=== PATIENT | male | born 1940 | race Caucasian/White ===

== ENCOUNTER 2019-11-16 09:56 | Inpatient (IN) | payer OTHER ==
[~2019-11-16] VITALS: Ht 180.3 cm; Wt 108.0 kg
[2019-11-16 10:02] VITALS: BP 156/98
[2019-11-16 10:41] LABS: ABSOLUTE NEUTROPHILS 6.3 thou/uL (1.4-8.2); BASOPHILS 0.7 % (0.0-2.0); EOSINOPHILS 2.1 % (0.0-3.0); HEMOGLOBIN 11.8 gm/dL (14.0-18.0); LYMPHOCYTES 13.3 % (24.0-44.0); MCH 31.8 pg (26.0-34.0); MCHC 33.7 g/dL (28.0-37.0); MCV 94.2 fL (80.0-100.0); MONOCYTES 7.7 % (1.0-8.0); PLATELET COUNT 167 thou/uL (150-400); POLYS 76.2 % (36.0-66.0); RBC 3.72 mil/uL (4.50-6.00); RDW 14.5 % (10.5-14.5); WBC 8.3 thou/uL (4.0-11.0)
[2019-11-16 10:58] LABS: ANION GAP 9 mmol/L (7-16); BUN 16 mg/dL (7-18); CALCIUM 8.7 mg/dL (8.5-10.1); CHLORIDE 100 mmol/L (98-107); CO2 26 mmol/L (21-32); CREATININE 1.1 mg/dL (0.7-1.3); GLUCOSE 154 mg/dL (74-106); POTASSIUM 4.2 mmol/L (3.5-5.1); SODIUM 135 mmol/L (136-145); TROPONIN-I <0.06 ng/mL (<0.06)
[2019-11-16] MEDS ORDERED: ELIQUIS5 MG PO (12:39)
[2019-11-16] MEDS ORDERED: RIVASTIGMINE3 MG PO (12:39)
[2019-11-16] MEDS ORDERED: FLOMAX0.4 MG PO (12:40)
[2019-11-16] MEDS ORDERED: GABAPENTIN600 M1 PO (12:40)
[2019-11-16] MEDS ORDERED: OMEPRAZOLE 20 M20 M1 PO (12:40)
[2019-11-16] MEDS ORDERED: FUROSEMIDE 20 M20 MG PO (12:41)
[2019-11-16] MEDS ORDERED: ALPRAZOLAM 0.50.5 MG PO (12:41)
[2019-11-16] MEDS ORDERED: COZAAR 25 MG TA25 M1 PO (12:41)
[2019-11-16] MEDS ORDERED: LEXAPRO 10 MG T10 M1 PO (12:42)
[2019-11-16] MEDS ORDERED: LIPITOR40 MG PO (12:42)
[2019-11-16] MEDS ORDERED: ASA81BEC PO (12:43)
[2019-11-16] MEDS ORDERED: DESYREL150 MG PO (12:43)
[2019-11-16] MEDS ORDERED: SPIRIVA INH (12:45)
[2019-11-16] MEDS ORDERED: DILTIAZEM 24HR360 M1 PO (12:46)
--- NOTE | 2019-11-16 13:08 | EKG ---
[facility] [place] [address] ELECTROCARDIOGRAM REPORT Name: RASHAUN ROMERO Room #: 170-7 ADM IN M.R.#: [id number] Admission: 11/16/19 Attend Phys: Apolinar Khan MD Discharge: Date of : 40 Report #: [id number] THIS REPORT FOR: cc: Edwin Felix MD, Samuel D. 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: : 1940 Requested By: Shan Conner Order Number: [id number] MD: Yefri Garner Measurements Intervals [place] Rate: 144 P: [place]: QRS: 16 QRSD: 87 T: 8 QT: 313 QTc: 485 Interpretive Statements Atrial fibrillation with rapid V-rate Anterior infarct, old Compared to ECG 07/12/2006 08:33:44 Myocardial infarct finding now present T-wave abnormality no longer present Electronically Signed On 11-16-2019 13:08:31 CDT by Yefri Garner [email or web address] <ELECTRONICALLY SIGNED> By: Yefri Garner MD, FACC 11/16/19 1308 1017 1017 Yefri Garner MD, FAC /EPI
[2019-11-16 13:15] VITALS: BP 137/97
--- NOTE | 2019-11-16 13:15 | NUR ---
FIRST ATTEMPT AT REPORT. STATES "GOING TO FIND CHARGE NURSE TO FIND OUT WHO IS GOING TO TAKE THE PT.
[2019-11-16 13:34] VITALS: BP 128/76
[2019-11-16 14:10] VITALS: BP 129/82
[2019-11-16] MEDS ORDERED: RIVASTIGMINE6 MG PO (15:22)
--- NOTE | 2019-11-16 16:29 | NUR ---
PT ADMITTED, ASSESSED, POC REVIEWED, BOTH PT AND VERBALIZED UNDERSTANDING, DR CAT IN TO SEE, PT'S TO BRING "DEMENTIA" MEDICATION TO STAFF FOR PT TO TAKE. WILL SEND TO PHARMACY FOR VERIFICATION WHEN SHE DOES. PT ON 3L NC TO EASE BREATHING, DR ALMANZA CONSULTED TO SEE PT, WILL MONITOR
[2019-11-16 19:48] VITALS: BP 134/98
[2019-11-16 23:41] VITALS: BP 128/68
[2019-11-17] VITALS: BP 105/75
--- NOTE | 2019-11-17 04:38 | NUR ---
Assumed pt care at 1900. Pt is alert and oriented but slightly forget.No sign of distress noted. Fall precaution in place. Pt is sitting at the side of the bed. Denies any pain. Assessment completed and documented. Scheduled meds administered to pt. Pt complains of shortness of breath during the night. Pt is stable. Continue to monitor pt. No further needs at this time.
[2019-11-17 05:00] VITALS: BP 115/78
[2019-11-17 05:34] LABS: CALCIUM 8.3 mg/dL (8.5-10.1); CREATININE 1.7 mg/dL (0.7-1.3); POTASSIUM 4.9 mmol/L (3.5-5.1)
[2019-11-17 06:06] LABS: ABSOLUTE NEUTROPHILS 6.8 thou/uL (1.4-8.2); BASOPHILS 0.3 % (0.0-2.0); EOSINOPHILS 2.2 % (0.0-3.0); HEMATOCRIT 33.3 % (42.0-52.0); HEMOGLOBIN 11.2 gm/dL (14.0-18.0); LYMPHOCYTES 12.7 % (24.0-44.0); MCH 31.7 pg (26.0-34.0); MCHC 33.5 g/dL (28.0-37.0); MCV 94.5 fL (80.0-100.0); PLATELET COUNT 154 thou/uL (150-400); POLYS 73.8 % (36.0-66.0); RBC 3.52 mil/uL (4.50-6.00); RDW 14.3 % (10.5-14.5); WBC 9.2 thou/uL (4.0-11.0)
[2019-11-17 06:21] LABS: URINE BILIRUBIN NEGATIVE (Negative); URINE BLOOD NEGATIVE (Negative); URINE CLARITY CLEAR; URINE COLOR YELLOW; URINE GLUCOSE-RANDOM* NEGATIVE (Negative); URINE KETONES TRACE (Negative); URINE LEUKOCYTES-REFLEX NEGATIVE (Negative); URINE NITRITE-REFLEX NEGATIVE (Negative); URINE PROTEIN (DIPSTICK) 1+ (Negative); URINE SPECIFIC GRAVITY 1.025 (1.005-1.035); URINE UROBILINOGEN 0.2 E.U./dl (0.2-1.0)
[2019-11-17 06:43] LABS: HYALINE CASTS 0-3 Few /LPF (None Seen); MUCUS 4-6 Moderate strn/LPF (None Seen); SQUAMOUS 0-3 Few /LPF (0-3); URINE WBC-REFLEX 0-5 Rare /HPF (0-5)
[2019-11-17 06:44] LABS: BACTERIA-REFLEX None Seen /HPF (None Seen); CRYSTALS None Seen /LPF (None Seen); URINE RBC None Seen /HPF (0-2)
[2019-11-17 08:33] VITALS: BP 113/71
[2019-11-17 11:46] VITALS: BP 120/61
--- NOTE | 2019-11-17 14:06 | NUR ---
EARLY DEMENTIA. REMAINS IN AFIB RVR DESPITE CARDIZEM AND AMIODARONE DRIPS. NPO AFTER MIDNIGHT FOR ABLATION TOMORROW. AT BEDSIDE. WILL CONTINUE TO FOLLOW CLOSELY.
[2019-11-17 15:55] VITALS: BP 103/61
[2019-11-17 21:00] VITALS: BP 123/74
--- NOTE | 2019-11-18 03:12 | NUR ---
ASSUMED CARE OF PATIENT AT 1900. PATIENT IS VERY FORGETFUL AND ASKS THE SAME QUESTIONS FREQUENTLY DESPITE CONSTANT REMINDERS. PATIENT CONTINUES ON 3L OF OXYGEN VIA NASAL CANNULA AND BECOMES SOA WITHOUT OXYGEN ON. EDUCATED PATIENT ON IMPORTANCE OF LEAVING OXYGEN ON. PATIENT RESTLESS THROUGH NOC. AT APPROXIMATELY 0230 PATIENT C/O NEEDING TO URINATE. PATIENT UNABLE TO VOID AND BLADDER SCAN SHOWED 352. WILL CONTINUE TO MONITOR.
[2019-11-18 05:15] VITALS: BP 104/65
--- NOTE | 2019-11-18 07:27 | HC ---
[facility] [place] [address] CONSULTATION Name: RASHAUN ROMERO Bree Room #: 209-P ADM IN M.R.#: [id number] Admission: 11/16/19 Attend Phys: Apolinar Khan MD Discharge: Date of : 40 Report #: [id number] THIS REPORT FOR: cc: Edwin Felix MD, Samuel D. MD McKittrick, Richard James MD ~ CC: Hailee Khan MD Oncology [facility] Dominick Ambrose MD Radiation Oncology [facility] Addendum: addended 11/18/2019 0724: had opportunity to review records faxed from recent admission at [facility]. Pt had discussion with pulmonary as well as medical oncology and radiation oncology and also cardiology. They believe that the danger of the IR biopsy to prove cancer was higher than the danger of treating this is as a presumed primary bronchogenic cancer with SBRT without a tissue biopsy proven malignancy. I agree that this is very reasonable. I would defer further oncologic treatments to Drs. Ambrose and Bill. REQUESTING PHYSICIAN: Apolinar Khan MD REASON FOR CONSULTATION: Left upper lobe mass. HISTORY OF PRESENT ILLNESS: The patient is a pleasant 79-year-old male admitted to [facility] because of new onset or worsening of ankle swelling and shortness of air. He was found to have AFib with rapid ventricular rate. Per the chart, history as he has no knowledge of this, he was recently admitted to [facility] and there he was found to have a left upper lobe mass. It is unclear whether he had a biopsy or not. It sounds like he was seen by Oncology and was suggested to consider radiation therapy. There also may have been plans for an outpatient PET scan. None of the family is available by phone and none of the records is yet available from [facility]. The patient at this time denies any headache, swallowing troubles, significant breathing troubles, slight cough. He is not aware of any blood in his sputum. He does not have any swallowing trouble. No nausea, no vomiting. No abdominal pain. He does state that he does seem to remember that he may have had some ankle swelling. Denies any skin rash. PAST MEDICAL HISTORY: Notable for what sounds like a left upper lobe lung mass. Note that this is seen on chest x-ray at this institution. Also, per the chart, it sounds like a history of COPD, atrial fibrillation, past CVA with some [facility] [address] [place] [address] CONSULTATION Name: RASHAUN ROMERO Room #: 209-P ADM IN M.R.#: [id number] Admission: 11/16/19 Attend Phys: Apolinar Khan MD Discharge: Date of : 40 Report #: [id number] resulting cognitive impairment/dementia, also hypertension, also peripheral neuropathy, also hyperlipidemia. 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 May have been a past smoker, it does not sound like any recent alcohol, no street drugs. FAMILY HISTORY: He does not recall any specific members with health issues, though it is not clear. MEDICATIONS: At this time in the hospital currently include rivastigmine 6 mg b.i.d., escitalopram 10 mg daily, tamsulosin 0.4 mg daily, losartan 50 mg daily, atorvastatin calcium 40 mg daily, pantoprazole 40 mg daily, trazodone 150 at bedtime, apixaban 5 b.i.d., budesonide 0.5 mg for respiratory therapy b.i.d., ipratropium and albuterol for respiratory therapy q. 6 while awake, diltiazem IV, Zofran p.r.n., Xanax 0.5 mg at bedtime p.r.n., hydrocodone p.r.n., Tylenol p.r.n., amiodarone 450 mg IV. PHYSICAL EXAMINATION: GENERAL: The patient appears his stated age. VITAL SIGNS: Blood pressure is 115/78, O2 sat 94%, respirations 20, pulse 103, temperature 97.7. NEUROLOGIC: Face appears symmetrical. He is awake and pleasant, very questionable historian on information other than the exact present. LUNGS: Mostly clear, there may be some very soft minimal rhonchi that clear with cough centrally. HEART: Regular rate, though there may be some irregular rhythm. LYMPHATICS: No enlarged lymph nodes in the supraclavicular, cervical, axillary, or inguinal epidural region. ABDOMEN: Without masses, slightly obese. EXTREMITIES: Without clubbing or cyanosis. There is some trace edema. LABORATORY DATA: Lab review here notable for BUN 23, creatinine 1.7. BNP 4799. White count 9.2, hemoglobin 11.2, MCV 94.5, RDW 14.3, platelets 154, neutrophils adequate. UA with a few squamous cells, few white cells, no bacteria, significant amount of mucus. RADIOLOGIC STUDIES: Include a recent chest x-ray that raised a question of a rounded left upper lobe mass versus artifact, with suggestion for followup ____ CT of chest within 1 week. Note that we had older films from 2006 that showed no definite pulmonary emboli, postoperative changes and removal of right-sided chest tubes. 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 ASSESSMENT AND PLAN: [facility] [address] [place] [address] CONSULTATION Name: RASHAUN ROMERO Room #: 209-P [facility] IN [facility]#: [id number] Admission: 11/16/19 Attend Phys: Apolinar Khan MD Discharge: Date of : 40 Report #: [id number] 1. Left upper lobe mass, suspect malignancy. We will await records from [facility] facility and but preliminarily it sounds like they did a fairly full evaluation and plan was set in motion. No additional studies at this time. 2. History of right upper lobe squamous cell cancer from 2006. 3. Atrial fibrillation with rapid ventricular response. Diltiazem, amiodarone and meds per others. 4. Chronic obstructive pulmonary disease. Inhalation therapy and aerosols per others. 5. Hypertension. Meds per others. 6. Hyperlipidemia. Statins and meds per others. 7. Cognitive impairment. Meds per others. We will be available and await records from [facility]. <ELECTRONICALLY SIGNED> By: Rashaun Walker MD 11/18/19 0727 [id number] [id number] Rashaun Walker MD /yomi
[2019-11-18 08:25] VITALS: BP 131/86
--- NOTE | 2019-11-18 10:19 | NUR ---
ASSUMES CARE OF PT AT 0700. PT ALERT AND ORIENTED TIMES FOUR. PT VERY ANXIOUS THIS MORNING. VSS. AMIODARONE AND CARDIZEM GTTS INFUSING, AFIB ON TELE. PT TAKEN DOWN TO MEDICAL OFFICE ASSISTANT FOR A CARDIOVERSION THIS MORNING. WILL CONTINUE TO MONITOR.
--- NOTE | 2019-11-18 11:06 | NUR ---
PT RETURNED TO ROOM 209 AT 1055 PER 2 RNS. ON O2 3L. PT AWAKE AND ALERT AND IN SINUS RHYTHM. NO COMPLAINTS EXCEPT THAT HE NEEDS TO VOID AND CANT. NURSE NOTIFIED. AMIODARONE AND CARDIZEM DRIPS DC'D JUST PRIOR TO CARDIOVERSION. DR. MIRELES ORDERS DRIPS TO NOT BE RESUMED AND STATES HE WILL ORDER PO AMIODARONE. REPORT TO TYRONE. HR 72; BP 136/79; RR16; SAT 92%. WITH PT.
[2019-11-18 12:00] VITALS: BP 141/77
--- NOTE | 2019-11-18 15:00 | NUR ---
INITIAL ASSESSMENT: ZA reviewed chart. Pt was admitted from home due to A-fib with RVR. Pt had cardioversion earlier today. Pt is currently on 3L of O2. Pt with recent dx of left upper lung mass, while in a [facility]. Pt to begin outpt radiation treatment per oncology. ZA placed call to pt's room and spoke with pt's , Jayda. Introduced role of SW. Pt with hx of dementia. Pt and live in their home. 1 step to enter from the back yard. No steps inside. Prior to admission, pt was independent with ADLs. Pt does have a cane. Pt's PCP is Dr. Edwin Felix. Pt has an inhaler that he uses PRN. No home O2 or breathing treatments. ZA discussed discharge plan. Pt's states that she was told pt would d/c home after procedure. ZA explained that there are not discharge orders at this time. ZA discussed with pt's nurse, who will contact physicians to clarify if pt will d/c today. ZA is following to assist as needed with discharge planning.
[2019-11-18 16:43] VITALS: BP 149/84
[2019-11-18 20:00] VITALS: BP 148/83
--- NOTE | 2019-11-19 02:30 | NUR ---
ASSUMED CARE OF PATIENT AT 1900. AT INITIAL ASSESSMENT PATIENT C/O NOT BEING ABLE TO BREATHE. PATIENT ON 3L OF OXYGEN VIA NC AND OXYGEN SATURATION 97%. ADMINISTERED PRN XANAX ORDERED FOR ANXIETY. PATIENT ANTICIPATING DC HOME TOMORROW.
[2019-11-19 04:30] VITALS: BP 157/93
[2019-11-19 05:58] LABS: HEMOGLOBIN 10.4 gm/dL (14.0-18.0); MCH 31.6 pg (26.0-34.0); MCHC 33.6 g/dL (28.0-37.0); MCV 94.2 fL (80.0-100.0); RBC 3.29 mil/uL (4.50-6.00); RDW 14.2 % (10.5-14.5); WBC 10.2 thou/uL (4.0-11.0)
[2019-11-19 06:17] LABS: CREATININE 1.5 mg/dL (0.7-1.3); POTASSIUM 5.2 mmol/L (3.5-5.1)
--- NOTE | 2019-11-19 08:02 | NUR ---
ASSUMED CARE OF PT AT SHIFT CHANGE, AMB SOMEWHAT STEADY W/CANE, SOME UPPER EXT TREMORS, SOME FORGETFULNESS, A&0X3-4, 02 SAT WAS ONLY 77 WITHOUT 02. AT 2.5 CURRENTLY, DOES NOT WEAR AT HOME, VERY SOA W/AMBULATION. WILL CONTINUE TO MONITOR RE: POSSIBLY WEANING. WITH 02 CURRENTLY. ENCOURAGED PT TO USE CALL LIGHT FOR ANY NEEDS. SEE SEPARATE INTERVENTIONS FOR ASSESSMENTS
[2019-11-19 08:05] VITALS: BP 143/95
[2019-11-19] MEDS ORDERED: PACERONE 200 M200 M1 PO (09:15)
[2019-11-19] MEDS ORDERED: PREDNISONE 10 M10 M1 PO (09:18)
[2019-11-19 11:44] VITALS: BP 143/95
[2019-11-19 11:55] VITALS: BP 145/75
[2019-11-19 12:19] VITALS: BP 143/95
--- NOTE | 2019-11-19 12:38 | NUR ---
FAXED REFERRAL TO [facility] SPOKE WITH BRENDA IN INTAKE HE WILL DELIVER O2 TANK PRIOR TO DC TODAY. FAXED REFERRAL TO [facility] SPOKE WITH NAEL IN INTAKE THE RECEIVED REFERRAL AND WILL ACCEPT.
--- NOTE | 2019-11-19 23:22 | O ---
[facility] [place] [address] OPERATIVE REPORT Name: RASHAUN ROMERO Room #: 209-P [facility] IN M.R.#: [id number] Admission: 11/16/19 Attend Phys: Apolinar Khan MD Discharge: 11/19/19 Date of : 40 Report #: [id number] THIS REPORT FOR: cc: Edwin Felix MD, Samuel D. MD Lammoglia, Francisco J. MD ~ CC: Apolinar Felix DATE OF SERVICE: 11/18/2019 PROCEDURES: 1. Electrical cardioversion. 2. Conscious sedation supervision. INDICATIONS: A 79-year-old male patient with symptomatic atrial fibrillation. BRIEF DESCRIPTION OF PROCEDURE: The patient was brought to the cardiac catheterization laboratory prep and hold; 2 mg of Versed and 12.5 of Demerol were given IV push for sedation while continuous oximetric and electrocardiographic monitoring ensued. Utilizing AP paddles and a 200-joule biphasic shock, the patient was converted to a sinus rhythm with PACs. Subsequent to the cardioversion shock, the patient was allowed to rest and reverse with 0.25 mg of Romazicon. The patient tolerated the procedure well and there were no complications. COMPLICATIONS: None. PLAN: 1. 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 2. Home today or tomorrow a.m. <ELECTRONICALLY SIGNED> By: Brenton Jackson MD 11/19/19 2322 1025 1044 Brenton Jackson MD /nt
== END 2019-11-19 13:54 | disposition home health service (06) | DRG 308 ==
LOC: ER 09:56 → 2N 12:43 → EROBS 12:43 → 2N 13:34
PROVIDERS: Emergency Medicine; Hospitalist; Nurse Practitioner; ADMIT Internal Medicine; ATTEND Internal Medicine
PROC: 5A2204Z Restoration of Cardiac Rhythm, Single (ICD-10-PCS; principal; 2019-11-18)
DX: I48.91 Unspecified atrial fibrillation (principal); J96.01 Acute respiratory failure with hypoxia; I10 Essential (primary) hypertension; E78.5 Hyperlipidemia, unspecified; G62.9 Polyneuropathy, unspecified; F03.90 Unspecified dementia, unspecified severity, without behavioral disturbance, psychotic disturbance, mood disturbance, and anxiety; R91.8 Other nonspecific abnormal finding of lung field; F41.9 Anxiety disorder, unspecified; J44.9 Chronic obstructive pulmonary disease, unspecified; G47.00 Insomnia, unspecified; N40.0 Benign prostatic hyperplasia without lower urinary tract symptoms; F32.9 Major depressive disorder, single episode, unspecified; J98.6 Disorders of diaphragm; Z79.82 Long term (current) use of aspirin; Z85.118 Personal history of other malignant neoplasm of bronchus and lung; Z87.891 Personal history of nicotine dependence; Z86.73 Personal history of transient ischemic attack (TIA), and cerebral infarction without residual deficits; Z79.899 Other long term (current) drug therapy
CPT/HCPCS: 10081

== ENCOUNTER 2019-12-04 18:14 | Inpatient (IN) | payer OTHER ==
[~2019-12-04] VITALS: Ht 180.3 cm; Wt 108.4 kg
[~2019-12-04 18:14] MED LIST: ALPRAZOLAM 0.50.5 MG PO; ASA81BEC PO; COZAAR 25 MG TA25 M1 PO; DESYREL150 MG PO; DILTIAZEM 24HR360 M1 PO; ELIQUIS5 MG PO; FLOMAX0.4 MG PO; FUROSEMIDE 20 M20 MG PO; GABAPENTIN600 M1 PO; LEXAPRO 10 MG T10 M1 PO; LIPITOR40 MG PO; OMEPRAZOLE 20 M20 M1 PO; PACERONE 200 M200 M1 PO; PREDNISONE 10 M10 M1 PO; RIVASTIGMINE3 MG PO; RIVASTIGMINE6 MG PO; SPIRIVA INH
[2019-12-04 18:15] VITALS: BP 138/87
[2019-12-04] MEDS ORDERED: FISH OIL 1,0001 EAC9 PO (18:51)
[2019-12-04] MEDS ORDERED: VITAMIN C500 M1 PO (18:51)
[2019-12-04] MEDS ORDERED: LASIX 40 MG TAB40 MG PO (18:51)
[2019-12-04 19:16] LABS: BE(vivo) 5.3 mmol/L (-2 to +3); HCO3 31.5 mmol/L (22.0-26.0); pH 7.384 (7.360-7.450); sO2 97.5 % (92.0-98.0)
[2019-12-04 19:23] LABS: CALCIUM 8.2 mg/dL (8.5-10.1); CREATININE 1.2 mg/dL (0.7-1.3); POTASSIUM 4.6 mmol/L (3.5-5.1)
[2019-12-04 19:33] LABS: ALBUMIN 3.6 g/dL (3.4-5.0); TOTAL BILIRUBIN 1.2 mg/dL (0.2-1.0); TOTAL PROTEIN 6.2 g/dL (6.4-8.2); TROPONIN-I 0.1 ng/mL (<0.06)
--- NOTE | 2019-12-04 20:30 | NUR ---
INCREASED CARDIZEM TO 15ML/HR
[2019-12-04 22:09] LABS: ABSOLUTE NEUTROPHILS 12.2 thou/uL (1.4-8.2); BASOPHILS 0.2 % (0.0-2.0); EOSINOPHILS 0.1 % (0.0-3.0); HEMATOCRIT 34.4 % (42.0-52.0); HEMOGLOBIN 11.6 gm/dL (14.0-18.0); LYMPHOCYTES 3.5 % (24.0-44.0); MCH 32.4 pg (26.0-34.0); MCHC 33.6 g/dL (28.0-37.0); MCV 96.6 fL (80.0-100.0); MONOCYTES 6.5 % (1.0-8.0); PLATELET COUNT 109 thou/uL (150-400); POLYS 89.7 % (36.0-66.0); RBC 3.56 mil/uL (4.50-6.00); WBC 13.6 thou/uL (4.0-11.0)
[2019-12-04 22:27] LABS: CHOLESTEROL 109 mg/dL (<200); HDL CHOLESTEROL 51 mg/dL (>40); LDL CHOLESTEROL 46 mg/dL (<100); TC:HDL 2.1 Ratio (Not establshd); TRIGLYCERIDE 60 mg/dL (<150); VLDL 12 mg/dL (<40)
[2019-12-04 22:31] LABS: SERUM ASSESSMENT Clear
[2019-12-05] VITALS (8 sets, daily range): BP systolic 108–142; BP diastolic 72–109
--- NOTE | 2019-12-05 03:39 | NUR ---
notified rosanne pisano, regarding cardizem drip asking if she would like to continue cardizem drip, ordered yes at 15ml/hr
[2019-12-05 06:21] LABS: HEMATOCRIT 31.7 % (42.0-52.0); HEMOGLOBIN 10.4 gm/dL (14.0-18.0); MCH 32.2 pg (26.0-34.0); MCHC 32.9 g/dL (28.0-37.0); RBC 3.24 mil/uL (4.50-6.00); RDW 15.5 % (10.5-14.5); WBC 9.6 thou/uL (4.0-11.0)
[2019-12-05 06:37] LABS: CALCIUM 8.1 mg/dL (8.5-10.1); CREATININE 1.1 mg/dL (0.7-1.3)
[2019-12-05 06:39] LABS: POTASSIUM 5.3 mmol/L (3.5-5.1)
[2019-12-06] VITALS (10 sets, daily range): BP systolic 89–128; BP diastolic 50–83
[2019-12-06 04:35] LABS: HEMATOCRIT 33.6 % (42.0-52.0); HEMOGLOBIN 10.9 gm/dL (14.0-18.0); MCH 31.4 pg (26.0-34.0); MCHC 32.6 g/dL (28.0-37.0); MCV 96.2 fL (80.0-100.0); RBC 3.49 mil/uL (4.50-6.00); RDW 15.3 % (10.5-14.5); WBC 8.8 thou/uL (4.0-11.0)
[2019-12-06 05:01] LABS: CALCIUM 8.3 mg/dL (8.5-10.1); CREATININE 1.4 mg/dL (0.7-1.3); POTASSIUM 4.5 mmol/L (3.5-5.1)
--- NOTE | 2019-12-06 15:19 | 2DMMODE ---
[facility] [place] [address] 2 D/M-MODE ECHOCARDIOGRAM Name: RASHAUN ROMERO Room #: 214-P ADM IN ..#: [id number] Admission: 12/04/19 Attend Phys: David Burton MD Discharge: Date of : 40 Report #: [id number] THIS REPORT FOR: cc: Edwin Felix MD, Samuel D. MD Lammoglia, Francisco J. MD ~ APPROVED REPORT Study performed: 12/06/2019 13:06:10 EXAM: Comprehensive 2D, Doppler, and color-flow Echocardiogram Patient Location: In-Patient Room #: 214 Status: routine BSA: 2.26 HR: 118 bpm Rhythm: Atrial Fibrillation Other Information Study Quality: Adequate Risk Factors: Cardiac Risk Factors: SOB 2D Dimensions RVDd: 56.31 mm IVSd: 11.62 (7-11mm) LVOT Diam: 24.77 (18-24mm) LVDd: 56.99 mm PWd: 12.80 (7-11mm) Ascending Ao: 41.80 (22-36mm) LVDs: 50.88 (25-40mm) Aortic Root: 38.27 mm LV Single Plane 4CH: 7.99 % Volumes Left Atrial Volume (Systole) Single Plane 4CH: 117.41 mL Aortic Valve AoV Peak Stanford.: 1.05 m/s AO Peak Gr.: 4.39 mmHg AO Mean Gr.: 2.35 mmHg AO V2 Mean: 0.72 m/s AO V2 VTI: 17.36 cm [facility] [address] [place] [address] 2 D/M-MODE ECHOCARDIOGRAM Name: RASHAUN ROMERO Bree Room #: 214-P [facility] IN ..#: [id number] Admission: 12/04/19 Attend Phys: David Burton MD Discharge: Date of : 40 Report #: [id number] Pulmonary Valve PV Peak Stanford.: 0.67 m/s PV Peak Gr.: 1.81 mmHg Tricuspid Valve TR Peak Stanford.: 2.40 m/s TR Peak Gr.: 23.10 mmHg Left Ventricle Left ventricle is mildly dilated. Mild concentric left ventricular hypertrophy. Left ventricular ejection fraction is severely decreased. LVEF is 10%. Right Ventricle Right ventricle is mildly dilated. Right ventricular systolic function is grossly normal. Atria Left atrium is dilated. Right atrium is dilated. Aortic Valve The aortic valve is normal in structure. No aortic regurgitation is present. There is no aortic valvular stenosis. Mitral Valve The mitral valve is normal in structure. Mild to moderate mitral regurgitation. No evidence of mitral valve stenosis. Tricuspid Valve The tricuspid valve is normal in structure. Trace to mild tricuspid regurgitation. Estimated PAP 33 mmHg. Pulmonic Valve The pulmonary valve is normal in structure. Mild pulmonic regurgitation. Great Vessels The aortic root is normal in size. IVC is normal in size and collapses <50% with inspiration. Pericardium There is no pericardial effusion. <Conclusion> Left ventricle is mildly dilated. Left ventricular ejection fraction is severely decreased. [facility] [address] [place] [address] 2 D/M-MODE ECHOCARDIOGRAM Name: RASHAUN ROMERO Bree Room #: 214-P ADM IN .R.#: [id number] Admission: 12/04/19 Attend Phys: David Burton MD Discharge: Date of : 40 Report #: [id number] LVEF is 10%. Right ventricle is mildly dilated. Right ventricular systolic function is grossly normal. Left atrium is dilated. Right atrium is dilated. The aortic valve is normal in structure. The mitral valve is normal in structure. Mild to moderate mitral regurgitation. The tricuspid valve is normal in structure. Trace to mild tricuspid regurgitation. Estimated PAP 33 mmHg. The pulmonary valve is normal in structure. Mild pulmonic regurgitation. There is no pericardial effusion. <ELECTRONICALLY SIGNED> By: Brenton Jackson MD 12/06/19 151 18 18 Brenton Jackson MD /INF
--- NOTE | 2019-12-06 18:02 | NUR ---
ASSESSMENT CHARTED - MEDS PER APR - PT CARDIZEM IV TURNED UP TO 15MGS - C D REACTOR OPERATOR COMING IN TO DO ECHO AND REQUESTED THAT HR BE A LITTLE SLOWER - HEAR RATE NOW AT REST IN IS THE 100'S RATHER THAT 110'S LOW 120'S. BP HAS REMIANED STABLE WITH INCREASE OF DRIP. MELVA DIET AND FLUIDS NO CO'S OF PAIN OR NAUSEA. PT REMAINS HAS REMAINED CONFUSED THROUGHOUT THE DAY - AT THE BEDSIDE FOR THE DAY AND "COVERS" FOR CONFUSION. LEGS BILAT WRAPPED WITH KRISTOFER BANDAGES PER ORDER. ACCUCHECKS CHARTED - HAS SPENT THE DAY UP IN THE CHAIR - DOES NOT LIKE TO KEEP LEGS ELEVATED AND SUGGESTED. NO CO'S AT THE PRESENT TIME.
[2019-12-07] VITALS (7 sets, daily range): BP systolic 118–152; BP diastolic 64–106
[2019-12-07 04:39] LABS: HEMATOCRIT 32.9 % (42.0-52.0); HEMOGLOBIN 10.6 gm/dL (14.0-18.0); MCH 31.1 pg (26.0-34.0); MCHC 32.3 g/dL (28.0-37.0); MCV 96.4 fL (80.0-100.0); RBC 3.41 mil/uL (4.50-6.00); RDW 15.5 % (10.5-14.5); WBC 13.6 thou/uL (4.0-11.0)
--- NOTE | 2019-12-07 05:15 | NUR ---
assumed pt care at the chnage of shift, pt is awake, alert and orientedx2 with confusion, up to the chair, up to 4l o2 with activity, cardizem remains at 15ml/hr, rates, hr in theb 100s-110s, upto 130s with activity, up to the bathroom couple times, tried to void with no success, bladder scan done with 308cc residual, order for straight cath given , pt stated need for an attemp to void again, pt able to void, 300cc, sleep interrupted, up to the chair this am, wont keep his feet up due to back pain, vss, frequent reorientation done, no acute distress noted, will continue to monitor
[2019-12-07 05:24] LABS: CALCIUM 8.5 mg/dL (8.5-10.1); CREATININE 1.6 mg/dL (0.7-1.3); POTASSIUM 4.1 mmol/L (3.5-5.1)
--- NOTE | 2019-12-07 07:25 | EKG ---
[facility] [place] [address] ELECTROCARDIOGRAM REPORT Name: RASHAUN ROMERO Room #: 214-P ADM IN M.R.#: [id number] Admission: 12/04/19 Attend Phys: David Burton MD Discharge: Date of : 40 Report #: [id number] THIS REPORT FOR: cc: Edwin Felix MD, Samuel D. 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: er nurse : 1940 Requested By: Lucinda Katz Order Number: [id number] MD: Socrates Peters Measurements Intervals [place] Rate: 142 P: [place]: QRS: 74 QRSD: 90 T: 9 QT: 294 QTc: 452 Interpretive Statements Atrial fibrillation with rapid V-rate Anterior infarct, old Nonspecific ST and T wave abnormality Compared to ECG 11/16/2019 10:17:34 No significant change was found Electronically Signed On 12-07-2019 7:25:19 CDT by Socrates Peters [email or web address] <ELECTRONICALLY SIGNED> By: Socrates Peters MD, FACC 12/07/19 0725 17 17 Socrates Peters MD, FACC /EPI
--- NOTE | 2019-12-07 19:42 | NUR ---
RECEIVED PT'S CARE AROUND 0720; PT. ON CHAIR; ALERT; DURING AM ASSESSMENT PT. ALERT TO PERSON, PLACE & SITUATION; NO C/O PAIN; AM MEDICATIONS GIVEN; CARDIZEM GTT AT 15 ML/H; TITRATE AROUND 1100; PT'S HR ON THE 90s-100s; RE-ASSESSMENT PT. HR BETWEEN 100s-120s; TITRATE BACK TO 15 ML/H; MONITORING; NEW IV STARTED OVER R. HAND; EDUCATED ABOUT CALLING BEFORE GETTING UP; FORGETFUL; SPOUSE AT THE BED SIDE; AFIB ON THE MONITOR; ASSESSMENT CHARGED; FOLLOWING POC; PASSED ON REPORT;
[2019-12-08 03:21] LABS: HEMATOCRIT 34.4 % (42.0-52.0); MCH 30.6 pg (26.0-34.0); MCHC 31.8 g/dL (28.0-37.0); MCV 96.1 fL (80.0-100.0); RBC 3.58 mil/uL (4.50-6.00); RDW 15.5 % (10.5-14.5); WBC 13.5 thou/uL (4.0-11.0)
[2019-12-08 03:40] LABS: CALCIUM 8.6 mg/dL (8.5-10.1); CREATININE 1.5 mg/dL (0.7-1.3); POTASSIUM 3.9 mmol/L (3.5-5.1)
[2019-12-08 04:45] VITALS: BP 112/67
[2019-12-08 08:00] VITALS: BP 123/76
[2019-12-08 08:29] LABS: ALBUMIN 3.6 g/dL (3.4-5.0); DIRECT BILIRUBIN 0.5 mg/dL (<0.1-0.2); TOTAL BILIRUBIN 1.1 mg/dL (0.2-1.0); TOTAL PROTEIN 6.2 g/dL (6.4-8.2)
--- NOTE | 2019-12-08 08:48 | NUR ---
ASSUME CARE 1900. PT/VITALS STABLE. DENIES ANY PAIN. NOTED SOME SUN DOWNING.AFIB ON MONITOR WITH HR STILL NOT CONTROLLED. PT ON CARDIZEM BRIP/TITRATED PER BP/HR. ASSESSMENT CHARTED. PROGRESSING MODERATELY TO POC. PLAN IS TO CONTINUE ON ANTI-ARRHYTHMIC MEDICATIONS TO CONTROL ARHYTHMIA. WILL CONTINUE TO MONITOR AND FOLLOW WITH POC
[2019-12-08 11:20] VITALS: BP 117/55
--- NOTE | 2019-12-08 14:55 | NUR ---
Met with patient and at bedside. Patient resides at home in independent home with . All needs on one level in home. Patient uses a cane as needed. Patient with recent [facility] stay in Oct. At that time dc home with [facility] and new oxygen via [place]. Patient PCP is Dr Edwin Felix. Patient has lung and hx of outpatient radiations therapy. Patient cont on heparin drip. Discussed with post acute care and referral sent to [facility] in [place].
[2019-12-08 16:30] VITALS: BP 90/64
--- NOTE | 2019-12-08 16:37 | NUR ---
FAXED REFERRL TO [facility] RECEIVED CONFIRMATION AND LEFT MSG WITH ALONZO IN ADM.
--- NOTE | 2019-12-08 17:29 | NUR ---
RECEIVED PT'S CARE AROUND 0730; PT. ON CHAIR; ALERT; CARDIZEM GTT RUNNING AT 20 ML/H; BRODIE ARTIST MODEL MANAGER MED SURG; NOTIFIED; DURING AM ASSESSMENT PT. AOX4; FORGETFUL; AM MEDICATIONS GIVEN; CARDIZEM GTT TITRATE DOWN TO 5ML/H; AFIB ON THE MONITOR; DURING THE EVENING SBP ON THE 90s; NO C/O DIZZINESS OR HEADACHE; PM CARVEDILOL HOLD; EDUCATED ABOUT I/O; ST. UNDERSTANDING; NEEDS TO BE REMAINED; MONITORING; ASSESSMENT CHARGED; FOLLOWING POC; WILL PASS ON REPORT;
[2019-12-08 19:57] VITALS: BP 135/99
--- NOTE | 2019-12-09 02:39 | NUR ---
ASSUMED CARE OF PATIENT AT 1900. PATIENT CONTINUES ON CARDIZEM. TITRATED CARDIZEM DOWN TO 5MG/HR AT 0238 DUE TO HEART RATE SUSTAINING IN 80s. OBTAINED ONE TIME ORDER TO XANAX AT HS DUE TO PATIENT APPEARING ANXIOUS-PATIENT STATING HE WANTS TO GO HOME, KEPT ASKING NURSE NOT TO LEAVE HIM ALONE IN DARK. XANAX APPEARED TO BE EFFECTIVE. PATIENT CONTINUES TO STRUGGLE WITH FEELINGS OF URINE RETENTION/HESITANCY.
[2019-12-09 03:55] VITALS: BP 153/64
[2019-12-09 06:16] LABS: HEMATOCRIT 33.2 % (42.0-52.0); HEMOGLOBIN 10.9 gm/dL (14.0-18.0); MCH 31.6 pg (26.0-34.0); MCV 95.8 fL (80.0-100.0); RBC 3.47 mil/uL (4.50-6.00); RDW 15.4 % (10.5-14.5); WBC 10.5 thou/uL (4.0-11.0)
[2019-12-09 06:35] LABS: CALCIUM 8.3 mg/dL (8.5-10.1); CREATININE 1.3 mg/dL (0.7-1.3); POTASSIUM 4.2 mmol/L (3.5-5.1)
[2019-12-09 07:15] VITALS: BP 124/68
[2019-12-09 07:28] VITALS: BP 139/85
--- NOTE | 2019-12-09 11:19 | NUR ---
PT. OFF CARDIZE GTT NOW FOR MONITORING OF RATE CONTROL NEXT HOUR TO TOW HOURS. DENIES PAIN, DENIES SOB, DENIES HEADACHE. LEFT PICC DRESSING CHANGED AT THIS TIME IT IS PEELING OFF AND CONCERN ON STERILITY NOW. WATCHIG TV. FLU SHOT WAS GIVEN RIGHT DELTOID THIS AM IM. NO REQUESTS AT THIS TIME. ON 4LITERS OF OXYGEN NOW WILL TITRATE WELL TO VIEW OUTCOME OF SUCH.
[2019-12-09 14:07] VITALS: BP 123/79
[2019-12-09 16:38] VITALS: BP 123/86
--- NOTE | 2019-12-09 17:58 | NUR ---
BACK ON CARDIZEM GTT EARLIER IN DAY TODAY TRIED TO TITRATE IT DOWN AND HEART RATE POPPED BACK UP TO 120'S, NO ECTOPY. 4 L NC AT THIS TIME. LONG DISCUSSION TODAY AND WANTS HIM TO GO TO REHAB AND THEN HOME WITH HOSPICE CARE MOVING FORWARD. PT. ATE ALL HIS DINNER DENIES ANY SOB AND DOES AMBULATE TO RESTOOM WITH 1 ASSIST AND GAIT BELT ON WITH STAFF. AFIB NO RVR OBSERVED TODAY.
[2019-12-09 19:30] VITALS: BP 142/86
--- NOTE | 2019-12-10 03:36 | NUR ---
ASSESSMENTS CHARTED, MEDS CHARTED GIVEN. PATIENT SLEEPING IN RECLINER DURING NIGHT. PATIENT WAS VERY CONFUSED AND ANXIOUS DURING THE EVENING, CALLING HIS BECAUSE HE DID NOT KNOW WHAT TO DO. TRIED SLEEPING IN BED, BUT COULD NOT GET COMFORTABLE, NOT COMFORTABLE IN RECLINER EITHER. ON CARDIZEM DRIP, AFIB IN THE 80'S. UP WITH ASSIST X 1 TO BATHROOM USING GAIT BELT, VERY WEAK. FALL PRECAUTIONS IN PLACE DURING SIFT.
[2019-12-10 04:00] VITALS: BP 141/88
[2019-12-10 07:48] VITALS: BP 123/94
[2019-12-10 09:22] LABS: CALCIUM 8.3 mg/dL (8.5-10.1); POTASSIUM 4.2 mmol/L (3.5-5.1)
[2019-12-10 12:41] VITALS: BP 148/103
--- NOTE | 2019-12-10 13:16 | NUR ---
FAXED CLINICAL UPDATE TO [facility] RECEIVED CONFIRMATION WTG ON AUTH.
--- NOTE | 2019-12-10 14:21 | NUR ---
[facility] has rec'd ins auth for skilled stay. Pt weaning off cardizem gtt today. All parties anticipating dc tomorrow to snf with likely transition to residential care. The attending to talk with dtr regarding residential prognosis and goals due to EF10% and afib.
[2019-12-10 15:33] VITALS: BP 120/68
[2019-12-10 20:15] VITALS: BP 121/83
[2019-12-11 04:45] VITALS: BP 126/91
[2019-12-11 05:29] LABS: HEMATOCRIT 36.1 % (42.0-52.0); HEMOGLOBIN 11.6 gm/dL (14.0-18.0); MCH 30.7 pg (26.0-34.0); MCHC 32.1 g/dL (28.0-37.0); MCV 95.6 fL (80.0-100.0); RBC 3.77 mil/uL (4.50-6.00); RDW 15.4 % (10.5-14.5); WBC 11.3 thou/uL (4.0-11.0)
[2019-12-11 05:39] LABS: CALCIUM 8.2 mg/dL (8.5-10.1); CREATININE 1.2 mg/dL (0.7-1.3); POTASSIUM 3.9 mmol/L (3.5-5.1)
[2019-12-11 07:57] VITALS: BP 116/77
[2019-12-11 12:33] VITALS: BP 131/72
--- NOTE | 2019-12-11 14:06 | NUR ---
DC to snf on hold. Pt still on gtt, iv lasix, and iv steriods. [facility] notified and they will need a new ins auth and covid test Saturday. 124c on chart. Updates to be given to the facility on Saturday.
[2019-12-11 17:50] VITALS: BP 142/87
--- NOTE | 2019-12-11 18:12 | NUR ---
ASSESSMENT CHARTED - PT MELVA DIET AND FLUIDS - PATIENT ASKING FOR SNACKS FREQUESTLY AND EATING EVERYTHING GIVEN TO HIM. MEDS PER APR - GIVEN TYLENOL FOR CO'S OF PAIN WITH DESIRED EFFECT. PT GIVEN CARDIZEM 120 MGS PO THIS AM AND IV CARDIZEM D/C'D 1 HOUR LATER HR RATE HAS BEEN 90'S TO LOW 110'S. PT HAS BEEN UP IN THE CHAIR MOST OF THE DAY - SEEEN BY PHYS THERAPY TODAY - INTO VISIT - NO CO'S AT THE PRESENT TIME.
[2019-12-11 20:55] VITALS: BP 133/90; BP 153/55
--- NOTE | 2019-12-12 03:16 | NUR ---
ASSUMED PT CARE ROCK 193. AXOX4. PT REALLY WANTS TO GO HOME TO HIS . VSS. NO S/S ACUTE DISTRESS NOTED OR REPORTED AT THIS TIME. WILL CONT TO MONITOR FOR ANY CHAANGES IN CONDITION.
[2019-12-12 04:45] VITALS: BP 142/98
[2019-12-12 09:00] VITALS: BP 153/74
--- NOTE | 2019-12-12 19:05 | NUR ---
ASSUMED CARE OF PT AT SHIFT CHANGE. ASSESSMENT CHARTED. MEDS GIVEN PER. PT A&OX4,SOMETIMES CONFUSED AND AGITATED. ON 3L NC, BLE WRAPPED IN KRISTOFER BANDAGES. PT AND NOW WANT TO GO HOME WITH HOME HEALTH, RATHER THAN A FACILITY. WILL CONTINUE TO MONITOR AND FOLLOW POC.
[2019-12-12 20:00] VITALS: BP 151/89
[2019-12-13 00:15] VITALS: BP 125/84
[2019-12-13 04:00] VITALS: BP 133/77
--- NOTE | 2019-12-13 04:27 | NUR ---
PT IS ALERT AND ORIENTED X4. PT LEGS ARE WARPED BILAERAL WITH LEG WRAPS. EDEMA IS 3 -4 PLUS IN LEGS AND FEET. LUNGS ARE DIMINISHED ON 3 LITERS OXYGEN NASAL CANULA. PT GETS ANXIOUS AND RESTLESS. MORE COMFORTALBE IN THE CHAIR RESTING WITH BED ALARM ON. REMAINS ON A FLUID RESTRICTION.FOR CHF. VOIDS PER URINAL WITH NURSING ASSISTANCE STAFF. WILL CONTINUE TO ASSESS AND MONITOR PER CHARLES.
[2019-12-13 06:30] LABS: CALCIUM 8.3 mg/dL (8.5-10.1); CREATININE 1.2 mg/dL (0.7-1.3); POTASSIUM 3.9 mmol/L (3.5-5.1)
[2019-12-13 08:00] VITALS: BP 107/91
[2019-12-13 11:19] VITALS: BP 103/62
--- NOTE | 2019-12-13 11:20 | EKG ---
[facility] [place] [address] ELECTROCARDIOGRAM REPORT Name: RASHAUN ROMERO Room #: 214-P ADM IN M.R.#: [id number] Admission: 12/04/19 Attend Phys: David Burton MD Discharge: Date of : 40 Report #: [id number] THIS REPORT FOR: cc: Edwin Felix MD, Samuel D. 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[facility] : 1940 Requested By: Socrates Peters Order Number: [id number] MD: Socrates Peters Measurements Intervals [place] Rate: 109 P: [place]: QRS: 87 QRSD: 92 T: 32 QT: 377 QTc: 508 Interpretive Statements Atrial fibrillation Poor R wave progression Prolonged QT interval Baseline wander in lead(s) V6 Compared to ECG 12/04/2019 18:18:06 Heart rate has slowed Electronically Signed On 12-13-2019 11:20:28 CDT by Socrates Peters [email or web address] <ELECTRONICALLY SIGNED> By: Socrates Peters MD, FACC 12/13/19 1120 0 Socrates Peters MD, FAC /EPI
[2019-12-13 16:04] VITALS: BP 116/75
[2019-12-13 20:10] VITALS: BP 124/56
--- NOTE | 2019-12-13 20:55 | NUR ---
ASSUMED CARE OF PT AT 0700. PT IS ALERT AND ORIENTED TO PERSON ONLY. PT IRRITABLE AND STATES THAT HE WANTS TO GO HOME. LUNG SOUNDS WITH OCCASIONAL CRACKLES TO BILATERAL LOWER LOBES, +3 PITTING EDEMA, 3L O2 VIA NC. AFIB ON MONITOR WITH HR BETWEEN 100-110 THIS SHIFT. AT BEDSIDE THIS EVENING, EXPRESSED CONCERN THAT INSURANCE WOULD NOT PAY FOR STAY AFTER TODAY AND ASKED TO ALLOW PT TO DC HOME TODAY. DISCUSSED WITH CM AND HOSPITALIST 'S CONCERNS. GIVEN NUMBER TO CALL IN AM TO DISCUSS CONCERNS AND IS AGREEABLE WITH STAYING IN HOSPITAL. STATES THAT SHE IS CONCERNED THAT THERE IS LITTLE IMPROVEMENT THE PATIENT WILL MAKE AND WOULD LIKE TO HAVE PT RETURN HOME IN THE COMING DAYS AND EXPRESSED THAT SHE IS OKAY WITH SEEKING HOSPICE OR PALLIATIVE OPTIONS. FALL PRECAUTIONS IN PLACE AND NURSING WILL CONTINUE TO MONITOR.
[2019-12-14 00:10] VITALS: BP 157/90
[2019-12-14 02:59] VITALS: BP 132/87
[2019-12-14 04:45] LABS: ALBUMIN 2.7 g/dL (3.4-5.0); PHOSPHORUS 2.9 mg/dL (2.5-4.9); POTASSIUM 4.1 mmol/L (3.5-5.1)
--- NOTE | 2019-12-14 04:53 | NUR ---
PT IS ALERT AND ORIENTED X4. LUNGS ARE CLEAR TO DIMINISHED. ON 3 LITERS NASAL CANULA. PT HAS DISCOMFORT IN BACK AND CHRONIC PAIN ISSUES. PAIN MEDS GIVEN FOR COMFORT. AND VOLTAREEN JEL TO BACK FOR COMFORT. NEEDS TO DISSCUSS COMFORT CARE PLAN VERSUS HOME HEALTH AT THIS STATE OF HOSPITALIZATION AND DISEASE PROCESS. PLANS ON TAKING HIM HOME TO TAKE CARE OF HIM. WILL CONTINUE HOSPITALIZATION AND PLAN OF CARE POST CARE PLAN WITH AND HAVE ARRANGEMENTS MADE PER CASE MANAGEMENT TO FIT PLAN OF CARE. HIGH RISK FALL ALERT USES CANE TO ASSIST WITH TRANSFERS AND MAINTAIN PT SAFETY AT THIS TIME PER NURSING
--- NOTE | 2019-12-14 08:57 | EKG ---
[facility] [address] ELECTROCARDIOGRAM REPORT Name: RASHAUN ROMERO Room #: 214-P ADM IN M.R.#: [id number] Admission: 12/04/19 Attend Phys: David Burton MD Discharge: Date of : 40 Report #: [id number] THIS REPORT FOR: cc: Edwin Feilx MD, Samuel D. 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1940 Requested By: Socrates Peters Order Number: [id number] MD: Socrates Peters Measurements Intervals [place] Rate: 116 P: [place]: QRS: 29 QRSD: 91 T: 30 QT: 366 QTc: 509 Interpretive Statements Atrial fibrillation Poor R wave progression Prolonged QT interval Compared to ECG 12/13/2019 07:31:30 No significant change was found Electronically Signed On 12-14-2019 8:57:35 CDT by Socrates Peters [email or web address] <ELECTRONICALLY SIGNED> By: Socrates Peters MD, [facility] 12/14/19 0857 9 9 Socrates Peters MD, [facility] /EPI
[2019-12-14 09:39] LABS: ALBUMIN 2.9 g/dL (3.4-5.0); DIRECT BILIRUBIN 0.3 mg/dL (<0.1-0.2); TOTAL BILIRUBIN 0.6 mg/dL (0.2-1.0)
[2019-12-14 12:27] VITALS: BP 107/73
--- NOTE | 2019-12-14 12:54 | NUR ---
FAXED REFERRAL TO [facility] SPOKE WITH INTAKE THEY COVER [facility] AND RECEIVED REFERRAL AND WILL REVIEW.
[2019-12-14 15:06] VITALS: BP 107/73
--- NOTE | 2019-12-14 15:49 | NUR ---
SPOKE WITH INTAKE AT [facility] THEY ARE OON WITH PT'S INSURANCE. FAXED REFERRAL TO [facility] SPOKE WITH INTAKE AND THEY ARE AT CAPACITY WITH PT'S INSURANCE. FAXED REFERRAL TO [facility] AND SPOKE WITH [facility] IN INTAKE THEY SERVICE [facility] AND WILL ACCEPT PT AT DISCHARGE.
[2019-12-14] MEDS ORDERED: CARVEDILOL25 MG PO (15:58)
[2019-12-14] MEDS ORDERED: CARDIZEM CD 18180 M3 PO (15:58)
[2019-12-14] MEDS ORDERED: SPIRONOLACTONE25 M1 PO (15:59)
[2019-12-14 16:20] VITALS: BP 107/73
--- NOTE | 2019-12-14 17:04 | NUR ---
Tenative plan for skilled care. Sp with who reports the patient adamently wants to return home. Discussed with hospice vs home health care. at this time reports she wants therapy and as much therapy at home as he can rec. She wants to trasition to hospice care. She sp with Dr Weeks today. hospitalist agreeable to pr. reports prev past they rec [facility] however they are at capacity. [facility] does not accept insurance. with no preference and agreeable to [facility] who services the area. Offered wc van home but wants to take in own car. She reports family at home who can assist with transfer from car once home. She does not have oxygen tank for home. [facility] to deliver tank to hospital room. Obtained a walker from [facility] for home. no further needs
[2019-12-14 17:08] VITALS: BP 122/78
== END 2019-12-14 18:13 | disposition home health service (06) | DRG 291 ==
LOC: ER 18:14 → 2N 20:03 → EROBS 20:03 → 2N 12-05 18:00
PROVIDERS: Hospitalist; Internal Medicine; Nurse Practitioner; Nurse Practitioner Family; Student in an Organized Health Care Education/Training Program; ADMIT Hospitalist; ATTEND Hospitalist
DX: I13.0 Hypertensive heart and chronic kidney disease with heart failure and stage 1 through stage 4 chronic kidney disease, or unspecified chronic kidney disease (principal); J96.21 Acute and chronic respiratory failure with hypoxia; J96.22 Acute and chronic respiratory failure with hypercapnia; I50.43 Acute on chronic combined systolic (congestive) and diastolic (congestive) heart failure; I48.19 Other persistent atrial fibrillation; J44.1 Chronic obstructive pulmonary disease with (acute) exacerbation; I50.9 Heart failure, unspecified; N17.9 Acute kidney failure, unspecified; N40.0 Benign prostatic hyperplasia without lower urinary tract symptoms; E78.5 Hyperlipidemia, unspecified; F03.90 Unspecified dementia, unspecified severity, without behavioral disturbance, psychotic disturbance, mood disturbance, and anxiety; G47.00 Insomnia, unspecified; R74.01 Elevation of levels of liver transaminase levels; R91.8 Other nonspecific abnormal finding of lung field; I08.1 Rheumatic disorders of both mitral and tricuspid valves; J98.6 Disorders of diaphragm; N18.9 Chronic kidney disease, unspecified; F32.9 Major depressive disorder, single episode, unspecified; G62.9 Polyneuropathy, unspecified; Z20.828 Contact with and (suspected) exposure to other viral communicable diseases; Z85.118 Personal history of other malignant neoplasm of bronchus and lung; Z79.01 Long term (current) use of anticoagulants; Z79.899 Other long term (current) drug therapy; Z79.82 Long term (current) use of aspirin; Z87.891 Personal history of nicotine dependence; Z23 Encounter for immunization
CPT/HCPCS: 10081

== ENCOUNTER 2019-12-21 00:23 | Inpatient (IN) | payer OTHER ==
[~2019-12-21] VITALS: Ht 193 cm; Wt 111.1 kg
[2019-12-21] VITALS (37 sets, daily range): BP systolic 99–131; BP diastolic 53–86
[~2019-12-21 00:23] MED LIST changes: +CARDIZEM CD 18180 M3 PO; +CARVEDILOL25 MG PO; +FISH OIL 1,0001 EAC9 PO; +LASIX 40 MG TAB40 MG PO; +SPIRONOLACTONE25 M1 PO; +VITAMIN C500 M1 PO
[2019-12-21 00:54] LABS: BE(vivo) 1.4 mmol/L (-2 to +3); HCO3 28.3 mmol/L (22.0-26.0); PO2 94.8 mmHg (80.0-100.0); sO2 96.6 % (92.0-98.0)
[2019-12-21 00:55] LABS: pH 7.321 (7.360-7.450)
--- NOTE | 2019-12-21 02:48 | NUR ---
pt is difficult stick. ER doctor and 2 RNs attempted to draw blood labs but unsuccessul. ED physician had to placed IO in patient. ED physician aware of wait for lab results.
[2019-12-21 03:12] LABS: ABSOLUTE NEUTROPHILS 11.3 thou/uL (1.4-8.2); BASOPHILS 0.5 % (0.0-2.0); EOSINOPHILS 0.5 % (0.0-3.0); HEMATOCRIT 32.5 % (42.0-52.0); HEMOGLOBIN 10.3 gm/dL (14.0-18.0); LYMPHOCYTES 3.7 % (24.0-44.0); MCH 30.4 pg (26.0-34.0); MCHC 31.7 g/dL (28.0-37.0); MCV 96.1 fL (80.0-100.0); PLATELET COUNT 118 thou/uL (150-400); POLYS 87.3 % (36.0-66.0); RBC 3.38 mil/uL (4.50-6.00); RDW 15.8 % (10.5-14.5)
[2019-12-21 03:19] LABS: ANION GAP 3 mmol/L (7-16); BUN 67 mg/dL (7-18); CHLORIDE 103 mmol/L (98-107); CO2 36 mmol/L (21-32); CREATININE 2.3 mg/dL (0.7-1.3); GLUCOSE 138 mg/dL (74-106); POTASSIUM 4.6 mmol/L (3.5-5.1); SODIUM 142 mmol/L (136-145)
[2019-12-21 03:20] LABS: INR 1.3; PROTIME 13.6 Seconds (9.3-11.4)
--- NOTE | 2019-12-21 03:22 | NUR ---
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
[2019-12-21 03:23] LABS: URINE BILIRUBIN NEGATIVE (Negative); URINE BLOOD NEGATIVE (Negative); URINE CLARITY SL CLOUDY; URINE COLOR YELLOW; URINE GLUCOSE-RANDOM* NEGATIVE (Negative); URINE KETONES NEGATIVE (Negative); URINE LEUKOCYTES-REFLEX NEGATIVE (Negative); URINE NITRITE-REFLEX NEGATIVE (Negative); URINE PROTEIN (DIPSTICK) 2+ (Negative); URINE SPECIFIC GRAVITY >= 1.030 (1.005-1.035)
[2019-12-21 03:30] LABS: ALBUMIN 2.8 g/dL (3.4-5.0); SGOT 36 U/L (15-37); SGPT 54 U/L (30-65); TOTAL BILIRUBIN 0.7 mg/dL (0.2-1.0); TOTAL PROTEIN 5.7 g/dL (6.4-8.2); TROPONIN-I <0.06 ng/mL (<0.06)
[2019-12-21 03:32] LABS: CRYSTALS None Seen /LPF (None Seen); MUCUS 0-3 Light strn/LPF (None Seen); SQUAMOUS None Seen /LPF (0-3)
[2019-12-21 03:33] LABS: BACTERIA-REFLEX None Seen /HPF (None Seen); HYALINE CASTS >10 Many /LPF (None Seen); URINE RBC None Seen /HPF (0-2); URINE WBC-REFLEX None Seen /HPF (0-5)
--- NOTE | 2019-12-21 03:35 | NUR ---
SPOKE WITH PT'S AND DAUGHTERS. THEY STATED PT WISHED TO BE A DNR AND PASS AWAY AT HOME, BUT THEY BECAME FRIGHTENED. FAMILY IS TO ARRIVE FROM OUT OF TOWN TODAY ABOUT 1600 TODAY AND IF COVID RESULTS ARE NEGATIVE THEY WOULD LIKE TO SPEND SOME TIME WITH PT AND WITHDRAWAL CARE. EMOTIONAL SUPPORT GIVEN, OFFER- ED TO FACETIME WITH PATIENT SO THEY COULD SEE THAT HE IS COMFORTABLE, FAMILY DENIED. QUESTIONS ANSWERED, POC DISCUSSED. PT TO GO TO ICU WHEN BED AVAIL- ABLE.
--- NOTE | 2019-12-21 07:42 | NUR ---
RECEIVED REPORT FROM ER NURSE. PT ARRIVED TO ICU ROOM 243 AROUND 0615. SETTLED INTO ICU BED. BENEFITS SALES CONSULTANT CONNECTED. OGT TO LIS. BASSAM TO DD. PT HAD LARGE LIQUID BOWEL MOVEMENT. FECAL MGT TUBE PLACED. REPORT GIVEN TO DAY SHIFT RN.
--- NOTE | 2019-12-21 16:19 | EKG ---
[facility] [place] [address] ELECTROCARDIOGRAM REPORT Name: RASHAUN ROMERO Room #: 243-P ADM IN M.R.#: [id number] Admission: 12/21/19 Attend Phys: Seng Galeano MD Discharge: Date of : 40 Report #: [id number] THIS REPORT FOR: cc: Edwin Felix MD, Samuel D. MD Santiago, Patrick MD [facility] ~ THIS REPORT FOR: //name// 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: : 1940 Requested By: Cj Patiño Order Number: [id number] : Yefri Garner Measurements Intervals [place] Rate: 76 P: [place]: QRS: -23 QRSD: 98 T: 138 QT: 501 QTc: 564 Interpretive Statements Atrial fibrillation Borderline left axis deviation Low voltage, precordial leads Anteroseptal infarct, old Nonspecific T abnormalities, lateral leads Prolonged QT interval Compared to ECG 12/14/2019 08:10:28 Low QRS voltage now present Myocardial infarct finding now present T-wave abnormality now present Poor R-wave progression no longer present Electronically Signed On 12-21-2019 16:18:49 CDT by Yefri Garner [email or web address] <ELECTRONICALLY SIGNED> By: Yefri Garner MD, FAC 12/21/19 1618 6 6 Yefri Garner MD, [facility] /EPI
--- NOTE | 2019-12-21 19:59 | NUR ---
SPOKE WITH FAMILY TODAY. PLANS TO PALLIATIVE EXTUBATE 12/21. DR HENDRICKS DOES NOT WANT TO BE CALLED FOR LOW URINE OUTPUTS.
[2019-12-22] VITALS (10 sets, daily range): BP systolic 97–151; BP diastolic 50–115
--- NOTE | 2019-12-22 04:49 | NUR ---
ASSUMED CARE OF PATIENT AT 1900. IO IV REMOVED. EJ IV INFILTRATED. WARM COMPRESS APPLIED. 2 NEW PERIPHERAL IVS INTIATED. PATIENT OPENS EYES AND MOVES ARMS. SISTER IN LAW CALLED THIS RN FOR UPDATE. FAMILY WILL BE COMING IN TODAY. DR MCGARRY CALLED, ORDER OBTAINED FOR MORPHOINE GTT IF NEEDED, NOT NEEDED AT THIS TIME. WILL BE MADE COMFORT CARE TODAY WHEN FAMILY IS READY. NOT PROGRESSING TOWARDS POC GOALS.
--- NOTE | 2019-12-22 10:59 | NUR ---
chart review, noted possible extubate. cm spoke with icu charge nurse and family is going to come in 2 at time, say their goodbyes, then will extubate. offered support if needed from case management.
--- NOTE | 2019-12-22 13:30 | NUR ---
extubated per families wishes . DNR status noted. Pt and vice president lending are at bedside. Emotional support given.
--- NOTE | 2019-12-22 13:30 | NUR ---
pt extubated per family request. family at bedside . emotional support given.
--- NOTE | 2019-12-22 16:45 | NUR ---
PT . FAMILY AT BEDSIDE. EMOTIONAL SUPPORT GIVEN. PRONOUNCED BY 2RNS.
== END 2019-12-22 18:13 | DRG 208 ==
LOC: ER 00:23 → EROBS 03:31 → ICU 03:31
PROVIDERS: Emergency Medicine; ADMIT Internal Medicine; ATTEND Internal Medicine
PROC: 5A1945Z Respiratory Ventilation, 24-96 Consecutive Hours (ICD-10-PCS; principal; 2019-12-21)
PROC: 0BH17EZ Insertion of Endotracheal Airway into Trachea, Via Natural or Artificial Opening (ICD-10-PCS; principal; 2019-12-21)
DX: J96.21 Acute and chronic respiratory failure with hypoxia (principal); I50.23 Acute on chronic systolic (congestive) heart failure; I13.0 Hypertensive heart and chronic kidney disease with heart failure and stage 1 through stage 4 chronic kidney disease, or unspecified chronic kidney disease; N17.9 Acute kidney failure, unspecified; I42.9 Cardiomyopathy, unspecified; G93.40 Encephalopathy, unspecified; C34.90 Malignant neoplasm of unspecified part of unspecified bronchus or lung; J96.22 Acute and chronic respiratory failure with hypercapnia; E78.5 Hyperlipidemia, unspecified; F03.90 Unspecified dementia, unspecified severity, without behavioral disturbance, psychotic disturbance, mood disturbance, and anxiety; G62.9 Polyneuropathy, unspecified; Z96.651 Presence of right artificial knee joint; N40.0 Benign prostatic hyperplasia without lower urinary tract symptoms; N18.30 Chronic kidney disease, stage 3 unspecified; J44.9 Chronic obstructive pulmonary disease, unspecified; I48.0 Paroxysmal atrial fibrillation; R00.1 Bradycardia, unspecified; Z66 Do not resuscitate; Z51.5 Encounter for palliative care; I95.9 Hypotension, unspecified; Z20.828 Contact with and (suspected) exposure to other viral communicable diseases; R91.8 Other nonspecific abnormal finding of lung field; Z86.73 Personal history of transient ischemic attack (TIA), and cerebral infarction without residual deficits; Z95.820 Peripheral vascular angioplasty status with implants and grafts; Z87.891 Personal history of nicotine dependence; Z23 Encounter for immunization; Z79.899 Other long term (current) drug therapy
CPT/HCPCS: 10078